=== PATIENT | female | born 2000 | race Caucasian/White ===

== ENCOUNTER 2020-06-05 02:36 | Emergency (ER) | payer SELFPAY ==
[~2020-06-05] VITALS: Ht 157.5 cm; Wt 59.0 kg
--- NOTE | 2020-06-05 02:45 | NUR ---
PT [id number] FOR ALCOHOL INTOXICATION. PER RA, BS 154 AND PT WAS VOMITTING, REC'D 4MG ZOFRAN IV EN ROUTE TO HOSPITAL. PT OPENS EYES TO PAINFUL STIMULI. RESPIRATIONS EVEN AND UNLABORED. VITAL SIGNS STABLE. NO ACUTE DISTRESS NOTED AT THIS TIME. PLACED ON MONITOR, WILL CONTINUE TO MONITOR
[2020-06-05] MEDS ORDERED: IV NS 0.9% 1,000 ML BAG IV ONE (03:00)
[2020-06-05] MEDS ORDERED: ONDANSETRON HCL/PF 4 MG/2 ML VIAL IVP ONE (03:00)
--- NOTE | 2020-06-05 03:14 | NUR ---
THREAD PULLING MACHINE ATTENDANT AT BEDSIDE FOR BLOOD DRAW
[2020-06-05] MEDS ORDERED: ONDANSETRON HCL/PF 4 MG/2 ML VIAL ONE (03:16)
[2020-06-05 03:30] LABS: BASOPHILS % (AUTO) 0.3 % (0.0-2.0); EOSINOPHILS % (AUTO) 0.3 % (0.0-6.0); HEMATOCRIT 40 % (33-45); HEMOGLOBIN 13.5 g/dL (11.5-14.8); LYMPHOCYTES # (AUTO) 2.1 /CMM (0.8-4.8); LYMPHOCYTES % (AUTO) 23.2 % (20.0-44.0); MEAN CORPUSCULAR HGB CONC 33 g/dl (31.0-36.0); MEAN CORPUSCULAR VOLUME 86 fL (82-100); MONOCYTES # (AUTO) 0.4 /CMM (0.1-1.30); MONOCYTES % (AUTO) 4.7 % (2.0-12.0); NEUTROPHILS # (AUTO) 6.5 /CMM (1.8-8.9); NEUTROPHILS % (AUTO) 71.5 % (43.0-81.0); PLATELET COUNT (AUTO) 312 /CMM (150-450); RED BLOOD CELL COUNT(AUTO) 4.68 MIL/uL (4.0-5.2); WHITE BLOOD COUNT (AUTO) 9.1 K/uL (4.3-11.0)
--- NOTE | 2020-06-05 03:40 | NUR ---
URINE COLLECTED, CALLED LAB FOR CRATING AND MOVING ESTIMATOR
[2020-06-05 04:14] LABS: CALCIUM, SERUM 8.5 mg/dL (8.5-10.1); CARBON DIOXIDE 19 mmol/L (21-32); CHLORIDE 108 mmol/L (98-107); CREATININE 0.8 mg/dL (0.6-1.3); GLUCOSE 103 mg/dL (74-106); POTASSIUM 3.8 mmol/L (3.5-5.1); SODIUM SERUM 145 mmol/L (136-145); UREA NITROGEN, BLOOD 13 mg/dL (7-18)
[2020-06-05 04:20] LABS: ALANINE AMINOTRANSFERASE 20 U/L (12-78); ALCOHOL, BLOOD 275 mg/dL (0-0); ALKALINE PHOSPHATASE 69 U/L (46-116); ASPARTATE AMINOTRANSFERASE 18 U/L (15-37); BILIRUBIN,DIRECT 0.1 mg/dL (0.0-0.2); BILIRUBIN,TOTAL 0.2 mg/dL (0.2-1.0); TOTAL PROTEIN, SERUM 7.8 g/dL (6.4-8.2)
[2020-06-05 04:23] LABS: ACETAMINOPHEN < 2 ug/ml (10-30)
[2020-06-05 04:24] LABS: BILIRUBIN,URINE NEGATIVE (NEGATIVE); COLOR,URINE YELLOW (YELLOW); LEUKOCYTE ESTERASE ,URINE NEGATIVE (NEGATIVE); NITRITE, URINE NEGATIVE (NEGATIVE); PROTEIN,URINE NEGATIVE (NEGATIVE); UGLUCOSE NEGATIVE (NEGATIVE); UROBILINOGEN,URINE 0.2 EU/dL (0.2)
[2020-06-05] MEDS ORDERED: IV NS 0.9% 1,000 ML IV ONE (04:30)
--- NOTE | 2020-06-05 04:46 | NUR ---
PT BROUGHT BY RADIOLOGY TO CT
[2020-06-05 05:21] LABS: BACTERIA,URINE None seen /HPF (None Seen); SQUAMOUS EPITHELIAL CELL,UR Few /HPF (None Seen); WBC,URINE 0-2 /HPF (0-3)
--- NOTE | 2020-06-05 06:46 | NUR ---
TRIED TO CALL [employer]. NO SETUP VOICEMAIL BOX. WILL TRY AGAIN AT A LATER TIME.
--- NOTE | 2020-06-05 06:55 | NUR ---
CALLED STEFFI, FRIEND, . LEFT VOICEMAIL.
--- NOTE | 2020-06-05 07:15 | NUR ---
sleeping, easily arousable. stable vitals.
--- NOTE | 2020-06-05 07:30 | NUR ---
REPORT GIVEN TO ARIAN CORONADO FOR SATISH.
--- NOTE | 2020-06-05 08:40 | NUR ---
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 medically stable for discharge.
--- NOTE | 2020-06-05 08:44 | NUR ---
Patient discharged to home in stable condition. Written and verbal after care instructions given. Patient verbalizes understanding of instruction.IV removed. Catheter intact and site benign. Pressure and 4x4 applied to site. No bleeding noted.
[2020-06-05 08:45] VITALS: BP 112/62
== END 2020-06-05 08:46 | disposition home or self-care (01) ==
LOC: ER 02:39 → EDBD 02:39 → ER 08:46
DX: F10.129 Alcohol abuse with intoxication, unspecified (principal); R41.82 Altered mental status, unspecified; R11.10 Vomiting, unspecified; Y90.8 Blood alcohol level of 240 mg/100 ml or more
CPT/HCPCS: 36415; 70450; 80048; 80076; 80299; 80307; 80320; 81001; 84703; 85025; 96361; 96374; 99284; J2405; J7030; G0480